=== PATIENT | female | born 1980 | race Caucasian/White ===

== ENCOUNTER 2018-11-07 04:21 | Emergency (ER) | payer OTHER ==
[~2018-11-07] VITALS: Ht 177.8 cm; Wt 59.0 kg
[~2018-11-07 04:21] MED LIST: CIPRO500 MG PO; HYDROCODONE-AP1 EAC6 PO; NAPROSYN500 MG PO; ONDANSETRON HCL4 M2 PO; TRINATE TABLET1 TAB PO; TYLENOL325 MG PO; VISTARIL 25 MG25 M1 PO
[2018-11-07 05:05] LABS: HEMATOCRIT 38.8 % (37.0-47.0); MCH 32.5 pg (26.0-34.0); MCHC 33.6 g/dL (28.0-37.0); MCV 96.7 fL (80.0-100.0); MPV 8.7 fl. (7.2-11.1); NUCLEATED RBCS 0 /100WBC; PLATELET COUNT* 239 thou/uL (150-400); RBC 4.01 mil/uL (4.20-5.00); RDW-CV 12.6 % (10.5-14.5); WBC 15.4 thou/uL (4.0-11.0)
[2018-11-07 05:06] LABS: URINE BILIRUBIN NEGATIVE (Negative); URINE BLOOD 2+ (Negative); URINE CLARITY CLEAR; URINE COLOR YELLOW; URINE GLUCOSE-RANDOM NEGATIVE (Negative); URINE KETONES NEGATIVE (Negative); URINE LEUKOCYTES-REFLEX 1+ (Negative); URINE NITRITE-REFLEX NEGATIVE (Negative); URINE PROTEIN 1+ (Negative); URINE UROBILINOGEN 0.2 E.U./dl (0.2-1.0)
[2018-11-07 05:13] LABS: BACTERIA-REFLEX >30 Many /HPF (None Seen); CASTS None Seen /LPF (None Seen); CRYSTALS None Seen /LPF (None Seen); MUCUS 4-6 Moderate strn/LPF (None Seen); SQUAMOUS 0-3 Few /LPF (0-3); URINE RBC >20 Many /HPF (0-2); URINE WBC-REFLEX >25 Many /HPF (0-5); WBC CLUMPS Moderate (None Seen)
[2018-11-07 05:15] LABS: CALCIUM 8.7 mg/dL (8.5-10.1); CREATININE 0.9 mg/dL (0.6-1.3); POTASSIUM 3.3 mmol/L (3.5-5.1)
[2018-11-07 05:15] LABS: AMP/METHAMP POSITIVE (Negative); BARBITURATES Negative (Negative); BENZODIAZEPINES Negative (Negative); COCAINE Negative (Negative); METHADONE Negative (Negative); OPIATES Negative (Negative); PCP Negative (Negative); THC Negative (Negative)
[2018-11-07 05:19] LABS: ALBUMIN 3.7 g/dL (3.4-5.0); TOTAL BILIRUBIN 0.7 mg/dL (<0.1-1.0); TOTAL PROTEIN 7.3 g/dL (6.4-8.2)
[2018-11-07] MEDS ORDERED: DOXYCYCLINE 10100 MG PO (05:49)
[2018-11-07 06:19] VITALS: BP 125/74
[2018-11-07 06:21] LABS: ABSOLUTE EOSINOPHILS 0.2 thou/uL (0.0-0.7); ABSOLUTE LYMPHOCYTES 0.9 thou/uL (0.8-5.3); ABSOLUTE MONOCYTES 1.2 thou/uL (0.0-1.2); ABSOLUTE NEUTROPHILS 13.1 thou/uL (1.6-8.1)
[2018-11-07 06:22] LABS: PLATELET ESTIMATE ADEQUATE
== END 2018-11-07 06:21 | disposition home or self-care (01) ==
LOC: M.ERS 04:21
PROVIDERS: Emergency Medicine
DX: N39.0 Urinary tract infection, site not specified (principal); F17.210 Nicotine dependence, cigarettes, uncomplicated; Z90.710 Acquired absence of both cervix and uterus; Z98.51 Tubal ligation status; Z79.899 Other long term (current) drug therapy